=== PATIENT | male | born 1950 | race Caucasian/White ===

== ENCOUNTER → 2023-12-09 11:42 | Outpatient (REF) | payer MEDICARE, SELFPAY | LOC: RAD 11:42 | PROVIDERS: ATTENDING PHYSICIAN Nurse Practitioner Family | DX: M25.552 Pain in left hip (principal); M25.551 Pain in right hip | CPT/HCPCS: 73523 ==

== ENCOUNTER 2024-12-20 12:40 | Emergency (ER) | payer MEDICARE, SELFPAY ==
[2024-12-20 12:41] VITALS: BMI 28.2
[2024-12-20 12:49] VITALS: BP 157/73
[2024-12-20 13:18] VITALS: BP 144/56
--- NOTE | 2024-12-20 13:29 | ED.GENMED ---
History of Present Illness
General
Chief Complaint: Heart Rate Problem
Source: patient and spouse
Exam Limitations: none
Time Seen by Provider: 12/20/24 13:09
Nursing documentation reviewed up to this point in time: agreed with
History of Present Illness
History of Present Illness:
Patient presents to ED for evaluation after his heart rate was noted to be low, during routine office evaluation at his urologist office this afternoon. Patient denies any symptoms however. Denies chest pain. Denies shortness of breath. Denies
dizziness. Denies nausea sensation. Denies previous history of similar symptoms. Patient's outpatient medications include olmesartan and Lipitor. Denies recent illness. Denies recent change in medications or diet.
Review of Systems
Review of Systems
Allergies reviewed?: Yes
All Other Systems: ROS reviewed and negative except as documented in HPI and ROS
Constitutional: Reports no symptoms; Denies fever
Respiratory: Reports no symptoms; Denies trouble breathing
Cardiac: Reports no symptoms; Denies palpitations
ABD/GI: Reports no symptoms; Denies nausea
Musculoskeletal: Reports no symptoms
Skin: Reports no symptoms
Neurological: Reports no symptoms; Denies dizzy
Phy Exam
Physical Exam
Physical Exam:
Physical Exam
General: no apparent distress, not acutely ill. afebrile
Head: nc/at. eomi
Neck: supple. no meningeal signs. normal posterior pharynx
Heart: bradycardic, no murmur.
Lungs: no acute respiratory distress. clear bilaterally
Abdomen: normal bowel sounds. not tender.
Neuro: alert and oriented x 3. no focal neurological deficits
Skin: no rash
Psychiatric: well kept. interactive and cooperative
Extremities: no edema. no calf tenderness.
Course
Orders/Labs/Results
Orders:
Orders
12/20/24 12:41
Electrocardiogram (*1) Urgent
Reason for Study: Bradycardia / Tachycardia
EKG- Treatment ONCE
12/20/24 13:30
Complete Blood Count/No Diff Urgent
Comprehensive Metabolic Panel Urgent
Magnesium Urgent
TSH Urgent
Troponin I Urgent
12/20/24 13:32
Lyme Progressive Urgent
12/20/24 14:02
Electrocardiogram (*1) Stat
Comment: ALREADY DONE IN ED
Abnormal Lab Results
12/20/24
13:30
RBC 4.67 L 10^6/uL
(4.70-6.10)
MPV 11.1 H fL
(7.4-10.4)
BUN 22 H mg/dl
(9-20)
Glucose 140 H mg/dl
(70-99)
12/20/24 13:30
12/20/24 13:30
Vital Signs
Initial and Last Documented VS:
Initial Vital Signs
Temp Pulse Resp BP Pulse Ox
97.4 F 40 16 157/73 98
12/20/24 12:49 12/20/24 12:49 12/20/24 12:49 12/20/24 12:49 12/20/24 12:49
Last Documented Vital Signs
Temp Pulse Resp BP Pulse Ox
97.4 F 35 16 120/76 96
12/20/24 12:49 12/20/24 16:02 12/20/24 13:23 12/20/24 16:02 12/20/24 16:02
MDM/Problems Addressed
MDM/Problems Addressed:
Patient noted to be bradycardic, but likely noted due to frequent PVCs. Discussed with on-call cardiology, Dr. Cardenas, who feels that patient can be discharged home at this time. Will follow-up with the patient as an outpatient on Wednesday. Return
precautions provided to patient and family, including dizziness/weakness/chest pain/nausea.
*Critical Care Note
Total Time (30-74mins, 75-104mins- exclusive of procedures): Not Applicable
ED Attending Note
-
Portions of this chart may have been created with voice recognition software.� Occasional wrong word or��sound alike� substitutions may have occurred due to the inherent limitations of voice recognition software.
Discharge Plan
Departure
Patient Disposition: Home (Routine Discharge)
Date of Disposition: 12/20/24
Time of Disposition: 15:23
Patient with high blood pressure during this ER visit?: Yes
Condition: Fair
Discharge Problem:
Frequent PVCs
Instructions: Premature Ventricular Contraction
Prescriptions:
No Action
olmesartan [Benicar] 40 mg Tablet
40 mg PO DAILY
rosuvastatin [Crestor] 10 mg Tablet
10 mg PO DAILY
aspirin 81 mg Tablet,Delayed Release (Dr/Ec)
81 mg PO DAILY
Referrals:
Jose G Cardenas MD [Active] - 12/22/24 11:20 am (You have a cardiology appointment at the [place] office. Please call with questions. )
Abhishek Ryan, [Family Provider] -
Activity Restrictions/Additional Instructions:
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 Please return to ED with any of the following symptoms, i.e. dizziness/chest pain/shortness of breath/weakness/nausea
Interventions
Interventions:
*Risk Screen - Suicide Last Done: 12/20/24 12:49
*General Assessment Last Done: 12/20/24 15:57
*Neglect/Abuse Screening Last Done: 12/20/24 12:49
*ED- Fall Risk Assessment Last Done: 12/20/24 12:41
*ED COVID-19 Vaccine History Last Done: 12/20/24 15:57
*Nursing Disposition Last Done: 12/20/24 16:02
ED- Cardiac Assessment Last Done: 12/20/24 13:23
ED- Pulmonary Assessment Last Done: 12/20/24 13:23
Discharge Date and Time
Discharge Date/Time: 12/20/24 16:05
Print Language: ARMENIAN
[2024-12-20 13:45] LABS: Hematocrit 42.5 % (39.0-52.0); Hemoglobin 14.2 g/dL (13.0-18.0); Mean Corp Hgb Conc. 33.4 g/dL (33.0-37.0); Mean Corpuscular Hgb 30.4 pg (27.0-31.0); Mean Platelet Volume 11.1 fL (7.4-10.4); Platelet Count 196 10^3/uL (130-400); Red Blood Cell Count 4.67 10^6/uL (4.70-6.10); Red Cell Dist. Width 13.2 % (11.5-14.5); White Blood Cell Count 8.2 10^3/uL (4.8-10.8)
[2024-12-20 14:00] LABS: ALT (SGPT) 22 U/L (0-50); AST (SGOT) 21 U/L (17-59); Albumin 4.2 g/dl (3.5-5.0); Alkaline Phosphatase 55 U/L (38-126); Blood Urea Nitrogen 22 mg/dl (9-20); Carbon Dioxide 30 mmol/L (22-30); Chloride 104 mmol/L (98-107); Estimated Creatinine Clearance 70 ml/min; Glucose 140 mg/dl (70-99); Magnesium 2.1 mg/dl (1.6-2.3); Potassium 4.4 mmol/L (3.5-5.1); Sodium 141 mmol/L (135-145); Total Bilirubin 0.9 mg/dl (0.2-1.3); Total Protein 6.5 g/dl (6.3-8.2); eGFR > 60.00
[2024-12-20 14:12] LABS: Troponin I < 0.012 ng/ml
[2024-12-20 14:30] LABS: TSH 1.76 uIU/ml (0.47-4.68)
[2024-12-20 16:02] VITALS: BP 120/76
[2024-12-21 10:38] LABS: Lyme Antibody Screen, EIA Negative (Negative)
== END 2024-12-20 16:05 | disposition home or self-care (01) ==
LOC: EMR 12:40
PROVIDERS: EMERGENCY PHYSICIAN Emergency Medicine; FAMILY PHYSICIAN Internal Medicine
DX: I49.3 Ventricular premature depolarization (principal)
CPT/HCPCS: 99284; 80053; 83735; 84443; 84484; 85027; 86618; 93005